=== PATIENT | male | born 1955 | race Caucasian/White ===

== ENCOUNTER 2024-09-27 13:08 | Emergency (ER) | payer OTHER, SELFPAY ==
[2024-09-27 13:09] VITALS: BP 148/75
[2024-09-27 13:28] VITALS: BMI 29.8
[2024-09-27 13:35] LABS: % Basophils 0.3 % (0-2); % Eosinophils 1.2 % (0-6); % Immature Granulocytes 0.4 % (0-0.5); % Lymphocytes 15.7 % (20.5-51.1); % Monocytes 6.1 % (1.7-9.3); % Neutrophils 76.3 % (42.2-75.2); Absolute Eosinophils 0.1 10^3/uL (0-0.7); Absolute Lymphocytes 1.7 10^3/uL (1.2-3.4); Absolute Monocytes 0.7 10^3/uL (0.1-0.6); Absolute Neutrophils 8.1 10^3/uL (1.4-6.5); Hematocrit 48.4 % (39.0-52.0); Hemoglobin 16.2 g/dL (13.0-18.0); Mean Corp Hgb Conc. 33.5 g/dL (33.0-37.0); Mean Corpuscular Hgb 29.8 pg (27.0-31.0); Mean Corpuscular Volume 89.1 fL (80.0-94.0); Mean Platelet Volume 9.8 fL (7.4-10.4); Nucleated Red Blood Cells % 0 % (-); Platelet Count 475 10^3/uL (130-400); Red Blood Cell Count 5.43 10^6/uL (4.70-6.10); Red Cell Dist. Width 13.6 % (11.5-14.5); White Blood Cell Count 10.6 10^3/uL (4.8-10.8)
[2024-09-27 14:14] LABS: ALT (SGPT) 27 U/L (0-50); AST (SGOT) 21 U/L (17-59); Albumin 4.3 g/dl (3.5-5.0); Alkaline Phosphatase 99 U/L (38-126); Blood Urea Nitrogen 18 mg/dl (9-20); Calcium 9.3 mg/dl (8.4-10.2); Carbon Dioxide 24 mmol/L (22-30); Chloride 108 mmol/L (98-107); Estimated Creatinine Clearance 73 ml/min; Glucose 135 mg/dl (70-99); Potassium 4.4 mmol/L (3.5-5.1); Sodium 143 mmol/L (135-145); Total Bilirubin 1.2 mg/dl (0.2-1.3); Total Protein 6.9 g/dl (6.3-8.2); eGFR > 60.00
[2024-09-27 14:23] VITALS: BP 151/130
--- NOTE | 2024-09-27 14:46 | ED.GENMED ---
History of Present Illness
General
Chief Complaint: Rectal Bleeding
Source: patient
Exam Limitations: none
Time Seen by Provider: 09/27/24 13:56
Nursing documentation reviewed up to this point in time: agreed with
History of Present Illness
History of Present Illness:
Patient presents to ED after 3 bloody bowel movements within 1 hour time span, prior to arrival. Denies fever or chills. Denies abdominal pain. Denies nausea or vomiting. Denies trauma. Denies recent change in medications or diet. Patient does
have history of hemorrhoids. Patient does state that he has had difficulty with bowel movements recently. As such, he is wondering whether or not he may be noticing blood from bleeding hemorrhoid. Denies previous history of similar symptoms.
Patient has had colonoscopy in the past which had revealed diverticulosis.
Past History
Past History
ED Past Medical History: HTN, Other (Liver disease, hep C, treated) and Other (Chronic neck/back pain)
ED Past Surgical History: Orthopedic (Cervical fusion, lumbar spinal stimulator) and Other (Hernia repair)
Social History
Tobacco: Smoker
Alcohol: Occasional
Personal:
Living: with family
Employment: Retired
Family History
Family History: Other (Noncontributory)
Review of Systems
Review of Systems
Allergies reviewed?: Yes
All Other Systems: ROS reviewed and negative except as documented in HPI and ROS
Constitutional: Reports no symptoms; Denies fever
ABD/GI: Reports bloody stools; Denies abdominal pain, vomiting or diarrhea
Musculoskeletal: Reports no symptoms
Skin: Reports no symptoms
Neurological: Reports no symptoms
Phy Exam
Physical Exam
Physical Exam:
Physical Exam
General: no apparent distress, not acutely ill. afebrile
Head: nc/at. eomi
Neck: supple. normal range of motion.
Heart: s1/s2 regular rate and rhythm, no murmur.
Lungs: no acute respiratory distress. clear bilaterally
Abdomen: normal bowel sounds. not tender. external hemorrhoid noted, nonthrombosed, along with small tear noted at 12:00, without active bleeding.
Neuro: alert and oriented x 3. no focal neurological deficits
Skin: no rash
Psychiatric: well kept. interactive and cooperative
Extremities: no edema. no calf tenderness
Course
Orders/Labs/Results
Orders:
Orders
09/27/24 13:27
CBC/With Diff [Complete Blood Count/With Diff] Urgent
CMP [Comprehensive Metabolic Panel] Urgent
09/27/24 15:41
Hematocrit Urgent
Hemoglobin Urgent
Abnormal Lab Results
09/27/24
13:27
Plt Count 475 H 10^3/uL
(130-400)
Absolute Neuts (auto) 8.1 H 10^3/uL
(1.4-6.5)
Absolute Monos (auto) 0.7 H 10^3/uL
(0.1-0.6)
Neutrophils % 76.3 H %
(42.2-75.2)
Lymphocytes % 15.7 L %
(20.5-51.1)
Chloride 108 H mmol/L
(98-107)
Glucose 135 H mg/dl
(70-99)
09/27/24 15:41
09/27/24 13:27
Vital Signs
Initial and Last Documented VS:
Initial Vital Signs
Temp Pulse Resp BP Pulse Ox
98.2 F 61 18 148/75 96
09/27/24 13:09 09/27/24 13:09 09/27/24 13:09 09/27/24 13:09 09/27/24 13:09
Last Documented Vital Signs
Temp Pulse Resp BP Pulse Ox
98.2 F 65 17 150/88 98
09/27/24 13:09 09/27/24 16:27 09/27/24 16:27 09/27/24 16:27 09/27/24 16:27
MDM/Problems Addressed
MDM/Problems Addressed:
H&H repeated, stable. Patient without any further bleeding episodes during observation ED. Patient's presentation likely secondary to small hemorrhoidal bleeding, versus internal hemorrhoidal bleeding versus less likely diverticular bleed. As
patient is hemodynamically stable without previous history of significant GI bleed, patient will be discharged home in stable condition, with recommendation to follow-up with his GI physician as an outpatient, with consideration to return to ED with
worsening symptoms. Patient expresses and agrees with the treatment plan. Patient will utilize stool regimen at home, to avoid straining during bowel movements.
*Critical Care Note
Total Time (30-74mins, 75-104mins- exclusive of procedures): Not Applicable
ED Attending Note
-
Portions of this chart may have been created with voice recognition software.� Occasional wrong word or��sound alike� substitutions may have occurred due to the inherent limitations of voice recognition software.
Discharge Plan
Departure
Patient Disposition: Home (Routine Discharge)
Date of Disposition: 09/27/24
Time of Disposition: 16:09
Patient with high blood pressure during this ER visit?: Yes
Condition: Good
Discharge Problem:
Rectal bleed
Instructions: Bloody Stools, Adult ED
Prescriptions:
No Action
cyanocobalamin (vitamin B-12) 1,000 MCG tablet
1,000 mcg PO DAILY
tamsulosin 0.4 mg capsule
0.4 mg PO DAILY
acetaminophen 325 mg Tablet
650 mg PO Q4HPRN PRN (Reason: mild pain /fever >100.4) Qty: 60 0RF
cefdinir 300 mg capsule
300 mg PO BID 7 Days Qty: 14 0RF
Referrals:
Gab Carter MD [Family Provider] -
Activity Restrictions/Additional Instructions:
As discussed, please follow-up with your primary care physician and/or GI physician for further evaluation and treatment. Please consider return to ED with worsening symptoms, i.e. continual bleeding, especially when associated with
weakness/dizziness/shortness of breath.
Interventions
Interventions:
*Risk Screen - Suicide Last Done: 09/27/24 13:09
*General Assessment Last Done: 09/27/24 13:09
*Neglect/Abuse Screening Last Done: 09/27/24 13:09
*ED COVID-19 Vaccine History Last Done: 09/27/24 13:09
DF-Ezvnsr-Irsqhpcome Assessment Last Done: 09/27/24 13:28
ED- Cardiac Assessment Last Done: 09/27/24 13:28
ED- Pulmonary Assessment Last Done: 09/27/24 13:28
Discharge Date and Time
Discharge Date/Time: 09/27/24 16:38
Print Language: CHINESE
[2024-09-27 15:48] LABS: Hematocrit 44.2 % (39.0-52.0); Hemoglobin 14.7 g/dL (13.0-18.0)
[2024-09-27 16:27] VITALS: BP 150/88
== END 2024-09-27 16:38 | disposition home or self-care (01) ==
LOC: EMR 13:08
PROVIDERS: EMERGENCY PHYSICIAN Emergency Medicine; FAMILY PHYSICIAN Internal Medicine
DX: K62.5 Hemorrhage of anus and rectum (principal); K64.4 Residual hemorrhoidal skin tags; I10 Essential (primary) hypertension; Z86.19 Personal history of other infectious and parasitic diseases; Z87.19 Personal history of other diseases of the digestive system; F17.200 Nicotine dependence, unspecified, uncomplicated
CPT/HCPCS: 99283; 80053; 85014; 85018; 85025